=== PATIENT | female | born 1970 | race Caucasian/White ===

== ENCOUNTER 2016-12-07 14:15 | Outpatient (CLI) | payer MEDICAID ==
[2016-12-10 00:51] LABS: HPV High Risk Type 16 Negative (Negative); HPV High Risk Type 18 Negative (Negative); HPV Other High Risk Types Negative (Negative)
== END 2016-12-07 14:16 | disposition home or self-care (01) ==
LOC: MADLABBHPM 14:15
PROVIDERS: ATTEND Family Medicine
DX: Z01.419 Encounter for gynecological examination (general) (routine) without abnormal findings (principal)
CPT/HCPCS: 36415; 87624; 88142; G0123

== ENCOUNTER 2017-03-08 10:53 | Outpatient (CLI) | payer OTHER ==
[2017-03-08 11:29] LABS: ALT (SGPT) 13 U/L (8-55); AST (SGOT) 11 U/L (5-34); Albumin 3.8 g/dL (3.5-5.0); Alkaline Phosphatase 106 U/L (40-150); Bilirubin, Direct 0.1 mg/dL (0.1-0.3); Bilirubin, Total 0.3 mg/dL (0.2-1.2); Calc. Creatinine Clearance 0 mL/min (70-130); Estimated GFR-MDRD 43; Protein, Total 7.3 g/dL (6.0-8.3)
--- NOTE | 2017-03-08 12:59 | RAD ---
TWO VIEW CHEST: History: Renal cell carcinoma. Comparison: None. FINDINGS: Lungs are clear and well aerated. Heart size is within normal range. Vascular markings are within nor mal range. Osseous structures are unremarkable with mild degenerative changes in the thoracic spine. IMPRESSION: No evidence of acute process. POS: [facility]
== END 2017-03-08 10:54 | disposition home or self-care (01) ==
LOC: MADLABBHPM 10:53
PROVIDERS: ATTEND Urology
DX: Z08 Encounter for follow-up examination after completed treatment for malignant neoplasm (principal); Z85.528 Personal history of other malignant neoplasm of kidney
CPT/HCPCS: 36415; 71020; 80076; 82565

== ENCOUNTER 2017-05-03 08:46 | Outpatient (CLI) | payer OTHER ==
--- NOTE | 2017-05-03 10:10 | ULT ---
ULTRASOUND ABDOMEN: Date: 05/03/17 HISTORY: Elevated LFTs. COMPARISON: None. FINDINGS: Pancreas is not well seen. Common bile duct measures 3.0 mm. Prior cholecystectomy. Left kidney measures 12.8 x 5.4 x 5.8 cm, without mass, hydronephrosis, or abn ormal calcifications. Spleen measures 10.8 cm in length. Prior right nephrectomy. IVC is not well seen, nor is the aorta. IMPRESSION: 1. Mild increased hepatic echotexture suggesting steatosis. 2. Prior cholecystectomy and right nephrectomy. 3. No intrahepatic or extrahepatic biliary dilatation. POS: [facility]
== END 2017-05-03 08:47 | disposition home or self-care (01) ==
LOC: MADULT 08:46
PROVIDERS: ATTEND Internal Medicine Gastroenterology
DX: R94.5 Abnormal results of liver function studies (principal); Z90.49 Acquired absence of other specified parts of digestive tract; Z90.5 Acquired absence of kidney
CPT/HCPCS: 76700

== ENCOUNTER 2017-06-15 13:58 | Outpatient (CLI) | payer OTHER | END 2017-06-15 13:59 | disposition home or self-care (01) | LOC: MADLABBHPM 13:58 | PROVIDERS: ATTEND Family Medicine | DX: K21.9 Gastro-esophageal reflux disease without esophagitis (principal) | CPT/HCPCS: 36415; 86677 ==

== ENCOUNTER 2017-09-14 16:46 | Emergency (ER) | payer OTHER ==
[~2017-09-14 16:46] MED LIST: Sodium Chloride 0.9% 1,000 ML BAG ONE
[2017-09-14] MEDS ORDERED: Ondansetron ODT 4 MG TAB ONE (17:02)
[2017-09-14] MEDS ORDERED: Promethazine HCl 25 MG/ML VIAL ONE (17:15)
[2017-09-14] MEDS ORDERED: Hydrocortisone Sod Succ/PF 100 mg/2 ml Vial ONE (17:15)
[2017-09-14] MEDS ORDERED: diphenhydrAMINE 50 MG/ML VIAL ONE (18:49)
[2017-09-14] MEDS ORDERED: Ketorolac Tromethamine 30 MG/ML VIAL ONE (18:49)
--- NOTE | 2017-09-14 20:37 | RAD ---
RADIOGRAPH CHEST 2 VIEWS: 09/14/17 HISTORY: 47-year-old female with dyspnea and hypoxemia. FINDINGS: There is no air space density, pulmonary edema, pleural effusion, pneumothorax, or cardiomegaly. IMPRESSION: No acute cardiopulmonary findings. jn [] POS: [facility]
[2017-09-14] MEDS ORDERED: Magnesium Sulfate 2 GM/NS 0.9% 50 ML BAG ONE (21:12)
[2017-09-14 22:23] LABS: #Lymphocytes 1.2 thou/uL (1.20-3.40); #Monocytes 0.3 thou/uL (0.11-0.59); #Neutrophils 3.9 thou/uL (1.40-6.50); %Basophils 0.3 % (0.0-1.0); %Eosinophils 0.1 % (0.0-10.0); %Neutrophils 72.5 % (42.0-75.0); Hemoglobin 14.2 g/dL (12.0-16.0); Mean Corpuscular Hemoglobin 27.4 pg (27.0-31.0); Mean Corpuscular Volume 83.2 fL (78.0-98.0); Mean Platelet Volume 9.8 fL (7.4-10.4); Platelet Count 121 thou/uL (130-400); RBC Distribution Width 11.7 % (11.5-14.5); Red Blood Cell (RBC) Count 5.16 mill/uL (4.20-5.40); White Blood Cell (WBC) Count 5.3 thou/uL (4.8-10.8)
[2017-09-14 22:35] LABS: PTT 33.1 SEC (22.9-36.1)
[2017-09-14 22:36] LABS: D-Dimer Test 0.83 *mcg/mL (0.27-0.43); Prothrombin Time 13.7 SEC (12.0-14.7)
[2017-09-14 22:43] LABS: ALT (SGPT) 24 U/L (8-55); AST (SGOT) 30 U/L (5-34); Albumin 3.7 g/dL (3.5-5.0); Alkaline Phosphatase 80 U/L (40-150); Anion Gap 16 mmol/L (10-20); BUN (Urea Nitrogen) 15 mg/dL (7.0-18.7); Bilirubin, Total 0.4 mg/dL (0.2-1.2); Calc. Creatinine Clearance 0 mL/min (70-130); Calcium 8.2 mg/dL (7.8-10.44); Carbon Dioxide 20 mmol/L (22-29); Chloride 103 mmol/L (98-107); Estimated GFR-MDRD 37; Globulin 3.1 g/dL (2.4-3.5); Glucose 178 mg/dL (70-105); Magnesium 2.8 mg/dL (1.6-2.6); Potassium 4.2 mmol/L (3.5-5.1); Protein, Total 6.8 g/dL (6.0-8.3); Sodium 135 mmol/L (136-145)
== END 2017-09-15 00:03 | disposition short-term general hospital (02) ==
LOC: MADERS 16:46
DX: R09.02 Hypoxemia (principal); K52.9 Noninfective gastroenteritis and colitis, unspecified; E27.40 Unspecified adrenocortical insufficiency; Z79.899 Other long term (current) drug therapy
CPT/HCPCS: 36415; 71046; 80053; 83735; 83880; 85025; 85379; 85610; 85730; 96365; 96366; 96375; J1200; J1720; J1885; J2550; J3475; J7050; J7620; Q0162

== ENCOUNTER 2017-12-30 10:21 | Emergency (ER) | payer OTHER ==
[2017-12-30] MEDS ORDERED: methylPREDNISolone Sod Succ/PF 125 MG/2 ML VIAL ONE (10:34)
== END 2017-12-30 10:27 | disposition home or self-care (01) ==
LOC: MADERS 10:21
DX: T63.461A Toxic effect of venom of wasps, accidental (unintentional), initial encounter (principal)
CPT/HCPCS: 96372; J2930

== ENCOUNTER 2018-06-21 08:41 | Outpatient (CLI) | payer OTHER ==
--- NOTE | 2018-06-21 09:21 | RAD ---
FRadiograph chest 2 views: HISTORY: 48-year-old female with history of renal cell carcinoma. COMPARISON: 09/14/2017. FINDINGS: Diffusely prominent interstitial markings. No airspace density, mass, pleural effusion, or pneumothor ax. No cardiomegaly or widening of the mediastinum. No interval change overall. IMPRESSION: No evidence of active disease
[2018-06-21 09:31] LABS: ALT (SGPT) 12 U/L (8-55); AST (SGOT) 12 U/L (5-34); Alkaline Phosphatase 110 U/L (40-150); Bilirubin, Direct 0.1 mg/dL (0.1-0.3); Bilirubin, Total 0.3 mg/dL (0.2-1.2); Calc. Creatinine Clearance 0 mL/min (70-130); Estimated GFR-MDRD 44; Protein, Total 7.2 g/dL (6.0-8.3)
--- NOTE | 2018-06-21 10:10 | ULT ---
RENAL ULTRASOUND: HISTORY: Right nephrectomy in 2017 for renal cell carcinoma. FINDINGS: The patient is post right nephrectomy. No mass is seen in the right renal bed. The left kidney measures 12.7 cm in length without focal mass or hydronephrosis. Cortical echogenici ty and thickness are normal. A small amount of urine is seen in a nondistended bladder (patient void ed prior to the exam). IMPRESSION: 1. Normal left renal sonogram. 2. Status post right nephrectomy. POS: [facility]
== END 2018-06-21 08:42 | disposition home or self-care (01) ==
LOC: MADLABBHPM 08:41
PROVIDERS: ATTEND Urology
DX: Z08 Encounter for follow-up examination after completed treatment for malignant neoplasm (principal); Z85.528 Personal history of other malignant neoplasm of kidney; Z90.5 Acquired absence of kidney
CPT/HCPCS: 36415; 71046; 76775; 80076; 82565

== ENCOUNTER 2019-07-26 10:59 | Outpatient (CLI) | payer OTHER ==
[2019-07-26 11:46] LABS: Anion Gap 16 mmol/L (10-20); BUN (Urea Nitrogen) 12 mg/dL (7.0-18.7); Calc. Creatinine Clearance 0 mL/min (70-130); Calcium 9.2 mg/dL (7.8-10.44); Carbon Dioxide 26 mmol/L (22-29); Chloride 106 mmol/L (98-107); Estimated GFR-MDRD 42; Glucose 110 mg/dL (70-105); Potassium 3.9 mmol/L (3.5-5.1); Sodium 144 mmol/L (136-145)
== END 2019-07-26 11:00 | disposition home or self-care (01) ==
LOC: MADLAB 10:59
PROVIDERS: ATTEND Internal Medicine Nephrology
DX: I12.9 Hypertensive chronic kidney disease with stage 1 through stage 4 chronic kidney disease, or unspecified chronic kidney disease (principal); N18.4 Chronic kidney disease, stage 4 (severe)
CPT/HCPCS: 36415; 80048

== ENCOUNTER 2020-10-17 14:25 | Emergency (ER) | payer OTHER ==
[2020-10-17] MEDS ORDERED: Ibuprofen 400 MG TAB ONE (15:06)
[2020-10-17] MEDS ORDERED: Amoxicillin/Potassium Clav 875 MG TAB ONE (15:06)
== END 2020-10-17 15:10 | disposition home or self-care (01) ==
LOC: MADERS 14:25
DX: K04.4 Acute apical periodontitis of pulpal origin (principal); K02.9 Dental caries, unspecified; I12.9 Hypertensive chronic kidney disease with stage 1 through stage 4 chronic kidney disease, or unspecified chronic kidney disease; N18.4 Chronic kidney disease, stage 4 (severe); E03.9 Hypothyroidism, unspecified; K21.9 Gastro-esophageal reflux disease without esophagitis; E78.5 Hyperlipidemia, unspecified; E78.00 Pure hypercholesterolemia, unspecified; F17.210 Nicotine dependence, cigarettes, uncomplicated
CPT/HCPCS: 99283